=== PATIENT | female | born 1970 | race Caucasian/White ===

== ENCOUNTER 2018-07-30 05:34 | Observation (INO) ==
[2018-07-30] MEDS ORDERED: Chlorhexidine Gluconate 2% 1 Pack (2 Cloths) TOPICAL ONE (06:22)
[2018-07-30] MEDS ORDERED: Metoprolol Tartrate 25 MG Tablet PO ONE (06:22)
[2018-07-30] MEDS ORDERED: Chlorhexidine 4% Topical 120 APPLIC/120 ML Bottle TOPICAL SCH (06:30)
[2018-07-30] MEDS ORDERED: Sodium Chlor 0.9% Inj 40 ML, Bupivacaine Liposo PF 1.3% Inj 20 ML P-ARTICULR SCH ×2 (06:30)
[2018-07-30] MEDS ORDERED: Vancomycin Inj 1,000 MG in Sodium Chlor 0.9% Inj 250 ML IV.SIG SCH (07:00)
[2018-07-30] MEDS ORDERED: Sodium Chlor 0.9% Inj 500 ML IV.SIG SCH (07:00)
[2018-07-30] MEDS ORDERED: ceFAZolin 2 GM Premix Inj 2 GM/50 ML PIGGYBACK IV.SIG SCH (07:00)
[2018-07-30] MEDS ORDERED: Tranexamic Acid Inj 925 MG in Sodium Chlor 0.9% Inj 100 ML IV.SIG SCH (07:00)
[2018-07-30] MEDS ORDERED: Bupivacaine/Epinephrine PF Inj 0.25% 10 ML Vial ONE (07:01)
[2018-07-30] MEDS ORDERED: Bupivacaine/Epinephrine Inj 0.25% 50 ML Vial ONE (07:01)
[2018-07-30] MEDS ORDERED: Ketorolac Inj 30 MG/ML (IVP) Vial IV.PUSH ONE (07:38)
[2018-07-30] MEDS ORDERED: Lidocaine PF 1% Inj 5 ML Syringe OTHER ONE (07:38)
[2018-07-30] MEDS ORDERED: Neostigmine Inj 5 MG/5 ML Syringe IV.PUSH ONE (07:38)
[2018-07-30] MEDS ORDERED: Glycopyrrolate Inj 1 MG/5 ML Syringe IV.PUSH ONE (07:38)
[2018-07-30] MEDS ORDERED: Naproxen 500 MG Tablet PO PRN (09:37)
[2018-07-30] MEDS ORDERED: Bisacodyl 10 MG Supp RECTAL PRN (09:42)
[2018-07-30] MEDS ORDERED: Post-op Orders (for Pharmacy) OTHER STA (09:42)
--- NOTE | 2018-07-30 09:48 | P.OP ---
- Preoperative Diagnosis (1) Osteoarthritis of left knee - Postoperative Diagnosis (1) Osteoarthritis of left knee Date of procedure: 07/30/18 Procedure: Left total knee replacement arthroplasty Anesthesia: GETA Surgeon: Ilya Singh MD Forest Engineer: ALBERT Puga Operation and Findings: EBL: 50 cc INDICATION: This patient presents with long-standing arthritis of the knee. Attachment record documents conservative measures. The patient now presents for surgical treatment. NOTE: Marii Puga PA-C was present for the entire surgical procedure as my first crusher. In my medical opinion her skill and care was necessary for proper management of this patient. TOURNIQUET TIME: 61 minutes COMPANY: [employer] FEMUR: Size 6, cruciate retaining TIBIA: Size 6, fixed-bearing PATELLA: 32 mm POLYETHYLENE INSERT: 10 mm, kinematic retaining PROCEDURE: This patient was brought the operating room and anesthetized in the supine position. The patient was positioned supine on the table. The tourniquet was placed about the thigh, and the leg was scrubbed with alcohol followed by Hibiclens followed by ChloraPrep and draped sterilely. A timeout was done, and antibiotics were given. After exsanguination the tourniquet was inflated to 250 mmHg. An anterior incision was made and a median parapatellar arthrotomy was performed. The patella was released laterally and subluxed allowing freehand cut of the patella which was then sized. A metal cap was placed over the exposed patellar surface for protection. A balloon pilot hole was placed in the distal femur allowing a 5 valgus cut removing 10 mm from the distal femur. Anterior posterior and chamfer cuts were made. The posterior stabilize osteotomy was made. The attention was directed to the tibia. Retractors were positioned. The external alignment guide was used allowing the lateral tibia to be used as referencing guide and cut utilizing an oscillating saw taking care to avoid any injury to the surrounding soft tissues. This was sized properly. Trial reduction showed that the insert fit nicely. The patient had range of motion extension 0 flexion 120 . A medial release was not necessary. The bony surfaces prepared. On the back table 2 packets of methylmethacrylate were mixed. The components were cemented. Excess cement was removed. The tourniquet let down and hemostasis was controlled. The final plastic insert was inserted. Range of motion was the same as previously noted. The arthrotomy was repaired with interrupted #1 Vicryl suture, subcutaneous tissue 2-0 Vicryl suture and skin with metallic maribell A sterile dressing was applied. Sponge counts, needle counts and instrument counts were all correct. The patient tolerated procedure well and was taken to recovery in satisfactory condition. FINDINGS: There was severe inflammatory changes. A subtotal synovectomy was accomplished. Significant loss of articular cartilage eroded down to the bone especially medial and posterior medial was noted as well as along the entire medial facet of the patella.
--- NOTE | 2018-07-30 09:54 | P.DCO ---
- Physical Therapy Physical Therapy: Gait training (5 days/week) Knee: Total knee, Protocol: Left, Full weight bearing Canvas Knee Splint: Other (At night for 4 weeks) Left Lower Extremity Weight Bearing: Weight bearing as tolerated Left Lower Extremity Range of Motion: Active ROM - Nursing RN: 3 days/week x 2 weeks Nursing: Dressing changes (No dressing change unless saturated. If saturated, alcohol dressing change daily), Other - Certification Need for Home Health services: I have seen patient Malorie Zuniga on 07/30/18. My clinical findings support the need for the requested home health care services because: Homebound Certification: I certify that my clinical findings support that this patient is homebound because:
[2018-07-30] MEDS ORDERED: fentaNYL Citrate Inj 100 MCG/2 ML Ampul ONE (10:09)
[2018-07-30] MEDS ORDERED: HYDROmorphone PF Inj 2 MG/ML Vial IV.PUSH PRN (10:15)
--- NOTE | 2018-07-30 10:28 | XR ---
EXAM DATE: 07/30/2018 9:42 AM EDT AGE/SEX: 47 years / Female INDICATIONS: Post op left knee surgery. CLINICAL DATA: This is the patient's initial encounter. Patient reports that signs and symptoms have been present for 1 day and indicates a pain score of 0/10. MEDICAL/SURGICAL HISTORY: None. None. COMPARISON: [facility] [place], KNEE RIGHT LTD (1 OR 2 VWS), 08/13/2013. . FINDINGS: Status post placement of a knee prosthesis. There is good position and alignment of the prosthesis wi th the bony structures. Postsurgical changes are noted. The bony structures are grossly intact. CONCLUSION: Good position and alignment is postoperative study. Electronically signed by: Harvey Velasquez MD 07/30/2018 10:27 AM EDT
[2018-07-30] MEDS ORDERED: *Meperidine Inj 25 MG/ML Vial PERIprocedural Use ONLY ONE (10:31)
[2018-07-30] MEDS ORDERED: Temazepam 15 MG Capsule PO PRN (21:00)
[2018-07-30] MEDS: Senna/Docusate Sodium 8.6/50 MG Tablet PO SCH (21:16)
[2018-07-30] MEDS: Multivitamin/Minerals Therapeutic Tablet PO SCH (21:16)
[2018-07-31] MEDS ORDERED: DAPAGLIFLOZIN METFORMIN PO SCH (09:00)
[2018-07-31] MEDS: Multivitamin/Minerals Therapeutic Tablet PO SCH ×2 (09:09→20:16)
[2018-07-31] MEDS: Senna/Docusate Sodium 8.6/50 MG Tablet PO SCH ×2 (09:09→20:16)
--- NOTE | 2018-07-31 13:48 | P.PNOP ---
Subjective Interval history: Her block wore off last night. She has quite a bit of knee pain. She states it is worse when hanging off the bed and walking. She has mild nausea. No other concerns. Her is with her and they have questions about surgery. Physical Exam Vital signs: Vital Signs 07/30/18 16:00 07/30/18 20:00 07/31/18 00:00 Temperature 98.2 F 97.4 F L 98.3 F Pulse Rate 88 88 98 H Respiratory Rate 16 20 20 Blood Pressure 124/74 115/58 L 104/57 L Pulse Oximetry 99 96 98 07/31/18 04:00 07/31/18 08:00 07/31/18 12:00 Temperature 98.4 F 97.4 F L 98.7 F Pulse Rate 87 76 80 Respiratory Rate 20 16 16 Blood Pressure 96/51 L 120/58 L 118/71 Pulse Oximetry 100 99 99 Intake & Output 07/30/18 07/31/18 07/31/18 18:59 06:59 18:59 Intake Total 1359.25 / 1359.25 1320 / 1320 Output Total 1000 / 1000 Balance 359.25 / 359.25 1320 / 1320 Weight 93.1 kg Intake: IV 509.25 / 509.25 1200 / 1200 LR 1000 mL Inj 1,000 ML @ 80 1000 / 1000 mls/hr IV.CONT .[id number] ZOE Rx# :[id number] Cyklokapron Inj 925 MG In NS 109.25 / 109.25 Inj 100 ML @ 200 mls/hr IV.SIG ONCE ZOE Rx#:[id number] Vancomycin Inj 1,000 MG In NS 250 / 250 Inj 250 ML @ 250 mls/hr IV.SIG ALUMINUM FABRICATION SUPERVISOR ZOE Rx#:[id number] Ancef 2 GM Premix Inj 2 gm In 50 / 50 50 ml @ 100 mls/hr IV.SIG ALUMINUM FABRICATION SUPERVISOR ZOE Rx#:[id number] Ancef Inj 1,000 MG In NS Inj 100 / 100 200 / 200 100 ML @ 200 mls/hr IV.SIG Q6H ZOE Rx#:[id number] Oral 120 / 120 Anesthesia Amount 850 / 850 Output: Urine 950 / 950 Estimated Blood Loss 50 / 50 Other: # Voids 1 2 Date of Last Bowel Movement 07/29/18 07/29/18 Narrative: Laying in bed NAD Appears tired With LLE Dressing c/d/i, mild swelling, no erythema +motor at/ehl, +sens, +nvi Neg homans - Constitutional no acute distress Results - Labs Laboratory Results - last 24 hr 07/30/18 16:52 POC Glucose 141 H - Procedures Left total knee arthroplasty Assessment and Plan - Ortho Post Op Day # 1 - Problem List (1) Osteoarthritis of left knee Code(s): M17.12 - Unilateral primary osteoarthritis, left knee Status: Acute - Assessment and Plan pod#1 s/p L TKA Moderate pain. Gets some relief with the [place]. Her insurance has only authorized 23 hours obs. She is medically stable though she has quite a bit of pain. Ok to d/c home today after PT class. PT - WBAT LLE. TKA protocol. CKS as night for 3 weeks. Hold dressing changes unless saturated. ASA 81mg bid. [facility] F/U in 2 weeks. Pt states she already has a walker.
--- NOTE | 2018-07-31 13:50 | P.DS ---
Date of admission: 07/30/18 09:42 Primary care physician: Woody Dang DO Attending physician on discharge: Ilya Singh Anticipated date of discharge: 08/01/18 Brief History from admission: Ms. Zuniga is a 47 year old female who has had ongoing left knee pain for 2 years. She had right total knee arthroplasty in 2012. She initially sought care with her medical physician. X-rays were taken showing advancing arthritis. She pursued conservative measures with medications, activity limitations, physical therapy and injections. Apparently surgery was pursued earlier this year but they could not get insurance authorization. Her function continued to decline. Over time it was again recommended she consider left total knee arthroplasty. The patient agreed. It was authorized by her insurance. She now presents for the above. DS: Diagnosis - Discharge Diagnosis (1) Osteoarthritis of left knee Status: Acute DS: Medications - Discharge Medications Prescriptions: aspirin 81 mg PO BID #60 tab hydrocodone-acetaminophen 1 tab PO Q4H PRN #42 tab PRN Reason: Acute Pain DS: Summary Hospital Course: Surgical treatment was performed on the day of admission without complication. She recovered well in PACU and was transferred to the orthopedic floor. Her was controlled with IV and oral medications. She had excellent pain control while the block was active. Once that wore off her pain increased. She was compliant with physical therapy and all total knee precautions. After 2 days she was found to be stable and discharged home with home healthcare. She was encouraged to continue icing the operative knee, pursue a high fiber diet for 3- 5 days, and to continue with physical therapy. She was given prescriptions for [place] and aspirin. - Time Spent with Patient Total time spent providing and/or coordinating discharge services: Greater than 30 minutes - Quality: VTE Deep Vein Thrombosis/Pulmonary Embolism Present on Admission: No Exam Vital signs: Vital Signs 07/30/18 16:00 07/30/18 20:00 07/31/18 00:00 Temperature 98.2 F 97.4 F L 98.3 F Pulse Rate 88 88 98 H Respiratory Rate 16 20 20 Blood Pressure 124/74 115/58 L 104/57 L Pulse Oximetry 99 96 98 07/31/18 04:00 07/31/18 08:00 07/31/18 12:00 Temperature 98.4 F 97.4 F L 98.7 F Pulse Rate 87 76 80 Respiratory Rate 20 16 16 Blood Pressure 96/51 L 120/58 L 118/71 Pulse Oximetry 100 99 99 Intake & Output 07/30/18 07/31/18 07/31/18 18:59 06:59 18:59 Intake Total 1359.25 / 1359.25 1320 / 1320 Output Total 1000 / 1000 Balance 359.25 / 359.25 1320 / 1320 Weight 93.1 kg Intake: IV 509.25 / 509.25 1200 / 1200 LR 1000 mL Inj 1,000 ML @ 80 1000 / 1000 mls/hr IV.CONT .[id number] ZOE Rx# :[id number] Cyklokapron Inj 925 MG In NS 109.25 / 109.25 Inj 100 ML @ 200 mls/hr IV.SIG ONCE ZOE Rx#:[id number] Vancomycin Inj 1,000 MG In NS 250 / 250 Inj 250 ML @ 250 mls/hr IV.SIG RN BONE MARROW TRANSPLANT ZOE Rx#:[id number] Ancef 2 GM Premix Inj 2 gm In 50 / 50 50 ml @ 100 mls/hr IV.SIG RN BONE MARROW TRANSPLANT ZOE Rx#:[id number] Ancef Inj 1,000 MG In NS Inj 100 / 100 200 / 200 100 ML @ 200 mls/hr IV.SIG Q6H ZOE Rx#:[id number] Oral 120 / 120 Anesthesia Amount 850 / 850 Output: Urine 950 / 950 Estimated Blood Loss 50 / 50 Other: # Voids 1 2 Date of Last Bowel Movement 07/29/18 07/29/18 Results Procedures completed during hospitalization: Left total knee arthroplasty Labs on day of discharge: Labs from last 24 hours 07/30/18 16:52 POC Glucose 141 H - Impressions ITS Impressions Knee X-Ray 07/30/18 09:42 CONCLUSION: Good position and alignment is postoperative study. Discharge Plan - Discharge Disposition Patient Disposition: /[facility] Service - Discharge Order Discharge Orders: Discharge Order (Routine); Ordered 07/31/18 Ordered By: Ilya Singh - Physicians Team Primary Care Provider: Woody Dang Attending Provider: Ilya Singh Other Providers: [facility],Agency - Rxs /Orders / Referrals /Forms Prescriptions: New aspirin 81 mg Tablet,Chewable 81 mg PO BID Qty: 60 RF: 0 hydrocodone-acetaminophen 7.5-325 mg Tablet 1 tab PO Q4H PRN (Reason: Acute Pain) Qty: 42 RF: 0 Continue aspirin [Adult Low Dose Aspirin] 81 mg Tablet,Delayed Release (Dr/Ec) 81 mg PO DAILY txcdyrg-mqkowjvgstynl-kdbqwlql [Excedrin Extra Strength] 250-250-65 mg Tablet 2 tab PO Q4-6H PRN (Reason: Sinus Symptoms) biotin 10,000 mcg Tablet,Disintegrating 10,000 mcg PO DAILY cholecalciferol (vitamin D3) [Vitamin D3] 2,000 unit Tablet 2,000 unit PO DAILY cinnamon bark [Cinnamon] 500 mg Capsule 1 cap PO BID coenzyme Q10 [Co Q-10] 100 mg Capsule 100 mg PO DAILY dapagliflozin-metformin [Xigduo XR] 10-1,000 mg Tablet, Ir - Er, Biphasic 24hr 1 tab PO DAILY Lacto.acidophilus-Bif.animalis [Daily Probiotic] 2.5 billion cell Capsule 1 cap PO DAILY naproxen [Naprosyn] 500 mg Tablet 500 mg PO BID PRN (Reason: Pain) omega 6-yir-bly-fish oil [Fish Oil] 1,000 mg (120 mg-180 mg) Capsule 1 cap PO BID red yeast rice 600 mg Tablet 600 mg PO BID semaglutide [Ozempic] 0.25 mg or 0.5 mg(2 mg/1.5 mL) Pen Injector 0.5 mg SUB-Q QWEEK turmeric (bulk) [Curcumin] 95 % Powder 1 tab miscellaneous HS vitamin B complex [B Complex-Vitamin B12] Tablet 1 tab PO DAILY Ambulatory Orders / Order Sets / DME: Adjustable Commode 3-in-1 (1 each) (Routine) Location: Determined by Patient Ordered By: Ilya Singh Walker With Front Wheels (1 each) (Routine) Location: Determined by Patient Ordered By: Ilya Singh Referrals: Woody Dang DO [Primary Care Provider] - See Instructions - Discharge Instructions Patient Printed Instructions: Hydrocodone/Acetaminophen (By mouth), How to Choose and Use a Walker (GEN), Fall Prevention (DC), REMEDIOS Hose (DC), Knee Replacement (DC) Additional Instructions: It has been our pleasure caring for you. We wish you a speedy recovery. Thank you for choosing [facility]! - Post Discharge Care Plan Care Plan Goals: Discharge Care Plan Goals for Total Knee Replacement You have undergone knee replacement surgery. Your doctor replaced your painful joint with an artificial joint to relieve pain and restore movement. Here are some goals to help you heal well. Directions to Meet your Goals: 1. Activity & Exercises: * Take pain medicine as directed by your doctor. * Sit in chairs with arms. The arms make it easier for you to stand up or sit down. * Dont sit for more than 30 to 45 minutes at one time. * Nap if you are tired, but dont stay in bed all day. * Sleep with a pillow under your ankle, not your knee. Be sure to change the position of your leg during the night. * Wear the support stockings you were given in the hospital as directed by your surgeon. 2. Prevent Falls/Injury: The su to successful recovery is movement with walking and exercising your knee as directed by your doctor. * Arrange your household to keep the items you need handy. Keep everything else out of the way. * Remove items that may cause you to fall, such as throw rugs and electrical cords. * Use nonslip bath mats, grab bars, an elevated toilet seat, and a shower chair in your bathroom * Sit on a shower stool or chair when you shower to keep from falling. * Until your balance, flexibility, and strength improve, use a cane, crutches, a walker, handrails, or someone to help you. * Keep your hands free by using a backpack, abiel pack, apron, or pockets to carry things * Walk up and down stairs with support. Try one step at a time. Use the railing if possible. * Dont drive until your doctor says its OK. * Dont drive while you are taking opioid pain medicine. 3. Precautions: * Prevent infection. Any infection will need to be treated immediately. Call your doctor right away if you think you might have an infection. * Tell your dentist that you have an artificial joint and take antibiotics as prescribed before any dental work. * Tell all your healthcare providers about your artificial joint before any medical procedure. * Maintain a healthy weight. Get help to lose any extra pounds. Added body weight puts stress on the knee. * Your medications may include blood-thinning medicine to prevent blood clots or antibiotics to prevent infection-prevent any falls or cuts 4. Incision Care: * Prevent infection by washing your hands often. If an infection occurs, it will need to be treated right away. * Call your doctor right away if you think you may have an infection. Symptoms include a fever or an incision that leaks white, green, or yellow fluid. * Don't soak your incision in water until your doctor says its OK. This means no hot tubs, bathtubs, or swimming pools. * Follow your doctor's instructions for changing the dressing. * Dont rub the incision, or apply creams or lotions to it. * If you notice any redness or drainage around the bandage site, contact your surgeon's office immediately. 5. Follow-Up: Do Not miss your follow-up appointment. Keep up with all your appointments and yearly check ups When to call your doctor: Call your doctor right away if you have: Fever of 100.4F (38C) or higher, or as directed by your doctor Shaking chills Stiffness, or inability to move the knee Increased swelling in your leg Increased redness, tenderness, or swelling in or around the knee incision Drainage from the knee incision Increased knee pain Call 911: Call 911 right away if you have: Chest pain Shortness of breath Any pain or tenderness in your calf
--- NOTE | 2018-08-01 08:48 | P.PNOP ---
Subjective Interval history: Doing much better with pain control today. Sitting in bed and very comfortable. Wants to go home Physical Exam Vital signs: Vital Signs 07/31/18 12:00 07/31/18 16:00 07/31/18 18:56 Temperature 98.7 F 98.3 F 97.9 F Pulse Rate 80 99 H 90 Respiratory Rate 16 17 16 Blood Pressure 118/71 131/63 114/71 Pulse Oximetry 99 100 100 07/31/18 23:02 07/31/18 23:59 08/01/18 01:28 Temperature 99.0 F Pulse Rate 100 H Respiratory Rate 18 16 18 Blood Pressure 115/76 Pulse Oximetry 08/01/18 04:00 Temperature 97.5 F L Pulse Rate 91 H Respiratory Rate 16 Blood Pressure 113/65 Pulse Oximetry 96 Intake & Output 07/31/18 08/01/18 08/01/18 18:59 06:59 18:59 Intake Total 480 / 480 1000 / 1000 Balance 480 / 480 1000 / 1000 Intake: IV 1000 / 1000 Oral 480 / 480 Other: # Voids 5 4 Date of Last Bowel Movement 07/29/18 07/29/18 # Bowel Movements 0 Narrative: Laying in bed NAD LLE Dressing c/d/i, mild swelling, no erythema +motor at/ehl, +sens, +nvi Neg homans Results - Procedures Left total knee arthroplasty Assessment and Plan - Problem List (1) Osteoarthritis of left knee Code(s): M17.12 - Unilateral primary osteoarthritis, left knee Status: Acute - Assessment and Plan pod#2 s/p L TKA Mild pain. Gets some relief with the [place]. Ok to d/c home today. Was unable to go home yesterday because inability to ambulate independently with only moderate pain control PT - WBAT LLE. TKA protocol. CKS as night for 3 weeks. Hold dressing changes unless saturated. ASA 81mg bid. D/C planning, home w [facility]. F/U in 2 weeks. Pt states she already has a walker.
[2018-08-01] MEDS: Multivitamin/Minerals Therapeutic Tablet PO SCH (09:09)
[2018-08-01] MEDS: Senna/Docusate Sodium 8.6/50 MG Tablet PO SCH (09:09)
[2018-08-01 09:26] VITALS: BP 137/63; PULSE 94; TEMP 97.4; O2SAT 99
[2018-08-01 12:53] VITALS: RESP 18
[2018-08-04] MEDS ORDERED: SEMAGLUTIDE 0.5 MG SQ SCH (09:00)
== END 2018-08-01 11:55 | disposition home health service (06) ==
LOC: HSDI 05:34 → HSDC 05:34 → EDSTATUS 07:30 → N06 11:56
PROVIDERS: ADMIT Orthopaedic Surgery Orthopaedic Surgery of the Spine; ATTEND Orthopaedic Surgery Orthopaedic Surgery of the Spine